=== PATIENT | male | born 1955 | race Caucasian/White ===

== ENCOUNTER 2019-11-18 10:53 | Emergency (ER) | payer OTHER ==
[2019-11-18 11:17] VITALS: BP 155/86
[2019-11-18] MEDS ORDERED: ONDANSETRON 4 MG TAB.RAPDIS PO ONE (11:29)
[2019-11-18] MEDS ORDERED: PENICILLIN V POTASSIUM 500 MG TABLET PO ONE (11:29)
[2019-11-18] MEDS ORDERED: HYDROCODONE/ACETAMINOPHEN 5-325 MG TABLET PO ONE (11:30)
[2019-11-18] MEDS ORDERED: LIDOCAINE 2% VISCOUS SOLN 15 ML UDCUP PO ONE (11:30)
--- NOTE | 2019-11-18 11:33 | ER Document Report ---
HPI - HPI Time Seen by Provider: 11/18/19 11:24 Pain Level: 5 Notes: 63-year-old male patient presenting to the emergency department chief complaint of dental pain. Patient reports pain at tooth #4, 5 and 6. Patient reports pain started 2 days ago. He states it is a throbbing pain. He states the pain is so severe he has been vomiting through the night. He denies any fever but reports some chills. Denies any other symptoms. Denies body aches. - REPRODUCTIVE Reproductive: DENIES: : Past Medical History - General Information source: Patient - Social History Smoking Status: Current Every Day Smoker Chew tobacco use (# tins/day): No Frequency of alcohol use: Social Drug Abuse: None Family History: Reviewed & Not Pertinent Patient has suicidal ideation: No Patient has homicidal ideation: No - Medical History Medical History: Negative Surgical Hx: Negative - Immunizations Immunizations up to date: Yes Vertical Provider Document - CONSTITUTIONAL Notes: PHYSICAL EXAMINATION: GENERAL: Well-appearing, well-nourished and in no acute distress. HEAD: Atraumatic, normocephalic. EYES: Pupils equal round extraocular movements intact, conjunctiva are normal. ENT: Nares patent, poor dentition noted throughout, erythema surrounding tooth #3, 4, 5 and 6. No obvious drainable abscess. Mild facial swelling noted. No trismus. Patient swallowing without difficulty. NECK: Normal range of motion LUNGS: No respiratory distress Musculoskeletal: Normal range of motion NEUROLOGICAL: Normal speech, normal gait. PSYCH: Normal mood, normal affect. SKIN: Warm, Dry, normal turgor, no rashes or lesions noted. - INFECTION CONTROL TRAVEL OUTSIDE OF THE [place] IN LAST 30 DAYS: No Course - Vital Signs Vital signs: Temp Pulse Resp BP Pulse Ox 98.1 F 84 18 155/86 H 98 11/18/19 11:15 11/18/19 11:15 11/18/19 11:15 11/18/19 11:15 11/18/19 11:15 Discharge - Discharge Clinical Impression: Pain, dental Condition: Stable Disposition: HOME, SELF-CARE Additional Instructions: You have been seen for dental pain. It is very important that you follow-up with a dentist for definitive care. Please return if you develop fever greater than 101, swelling in your face, vomiting, difficulty breathing or swallowing, or any other symptoms that are concerning to you. For pain you should take ibuprofen 800 mg every 8 hours as needed. Prescriptions: Penicillin V Potassium [Penicillin Vk 500 mg Tablet] 500 mg PO BID #20 tablet Ondansetron [Zofran Odt 4 mg Tablet] 1 - 2 tab PO Q4H PRN #15 tab.rapdis PRN Reason: For Nausea/Vomiting Referrals: DALI STONER MD [Primary Care Provider] - Follow up as needed
== END 2019-11-18 11:45 | disposition home or self-care (01) ==
LOC: ER 10:53
DX: K08.9 Disorder of teeth and supporting structures, unspecified (principal); R11.10 Vomiting, unspecified; F17.200 Nicotine dependence, unspecified, uncomplicated
CPT/HCPCS: 99282; S0119; J3490

== ENCOUNTER 2019-12-03 06:28 | Emergency (ER) | payer OTHER ==
--- NOTE | 2019-12-03 07:23 | RADIOLOGY REPORT (SQ) ---
Chest 2 view on 12/03/2019 at 7:20 AM CLINICAL INDICATION: Chest pain COMPARISON: None FINDINGS: The lungs are clear. Cardiac, hilar and mediastinal contours are within normal limits. Pulmonary vascularity is within normal limits. No bony abnormality is noted. IMPRESSION: No active disease.
[2019-12-03 07:33] LABS: ABSOLUTE BASOPHILS # (AUTO) 0.1 10^3/uL (0.0-0.2); ABSOLUTE EOSINOPHILS # (AUTO) 0.4 10^3/uL (0.0-0.6); ABSOLUTE LYMPHOCYTES (AUTO) 1.9 10^3/uL (0.5-4.7); ABSOLUTE MONOCYTES (AUTO) 1.2 10^3/uL (0.1-1.4); BASOPHILS % (AUTO) 0.5 % (0-2); EOSINOPHILS % (AUTO) 2.6 % (0-6); HEMATOCRIT 38.9 % (37.9-51.0); HEMOGLOBIN 13.2 g/dL (13.5-17.0); LYMPHOCYTES % (AUTO) 14.3 % (13-45); MEAN CORPUSCULAR HEMOGLOBIN 30.8 pg (27.0-33.4); MEAN CORPUSCULAR HGB CONC 33.8 g/dL (32.0-36.0); MEAN CORPUSCULAR VOLUME 91 fl (80-97); MONOCYTES % (AUTO) 8.9 % (3-13); PLATELET COUNT 335 10^3/uL (150-450); RED BLOOD COUNT 4.27 10^6/uL (4.35-5.55); RED CELL DISTRIBUTION WIDTH 13.1 % (11.5-14.0); SEGMENTED NEUTROPHILS % (AUTO) 73.7 % (42-78); TOTAL CELLS COUNTED % (AUTO) 100 %; WHITE BLOOD COUNT 13.5 10^3/uL (4.0-10.5)
[2019-12-03] MEDS ORDERED: NITROGLYCERIN 0.4 MG/TAB 25 TAB/BOTTLE ONE (07:55)
[2019-12-03 08:04] LABS: ALBUMIN 4.1 g/dL (3.5-5.0); ALKALINE PHOSPHATASE 119 U/L (38-126); ANION GAP 7 (5-19); ASPARTATE AMINO TRANSFERASE 151 U/L (17-59); BILIRUBIN,DIRECT 0.3 mg/dL (0.0-0.4); BILIRUBIN,TOTAL 0.4 mg/dL (0.2-1.3); BLOOD UREA NITROGEN 19 mg/dL (7-20); CALCIUM 9.2 mg/dL (8.4-10.2); CARBON DIOXIDE 30 mmol/L (22-30); CHLORIDE 101 mmol/L (98-107); CREATINE KINASE 126 U/L (55-170); GLUCOSE 97 mg/dL (75-110); POTASSIUM 4.5 mmol/L (3.6-5.0); TOTAL PROTEIN 7.2 g/dL (6.3-8.2)
[2019-12-03 08:15] LABS: CREATINE KINASE MB 1.49 ng/mL (<4.55)
[2019-12-03 08:16] LABS: TROPONIN I < 0.012 ng/mL
--- NOTE | 2019-12-03 08:27 | ER Document Report ---
ED General - General Chief Complaint: Chest Pain Stated Complaint: CHEST PAIN Primary Care Provider: DALI STONER MD [Primary Care Provider] - Follow up as needed Notes: Patient is a 63-year-old white male with a past medical history of hyperlipidemia who presents to the emergency department with a chief complaint of chest pain that began around 5 AM this morning. He describes it as a sharp stabbing pain in the lower central chest. States it radiates to the bilateral diaphragm areas. States it awoke him this morning around 5 AM. He reports the pain comes in waves. States at this time he is currently asymptomatic. He denies any associated symptoms. Denies any shortness of breath, lower extremity pain or swelling, hemoptysis, history of DVT or PE, recent surgery, recent travel or recent mobilization. Denies any history of cancer or hormone replacement therapies. He is a current everyday smoker. TRAVEL OUTSIDE OF THE [place] IN LAST 30 DAYS: No - Related Data Allergies/Adverse Reactions: No Known Allergies Allergy (Verified 12/03/19 07:47) Home Medications: LIPITOR, ASA 81 MG, MVI Past Medical History - Social History Smoking Status: Current Every Day Smoker Chew tobacco use (# tins/day): No Frequency of alcohol use: None Drug Abuse: None Family History: Reviewed & Not Pertinent Patient has suicidal ideation: No Patient has homicidal ideation: No - Past Medical History Cardiac Medical History: Reports: Hx Hypercholesterolemia Past Surgical History: Reports: Hx Abdominal Surgery - rt inguinal hernia, Hx Cholecystectomy - Immunizations Immunizations up to date: Yes Review of Systems - Review of Systems Cardiovascular: Chest pain -: Yes All other systems reviewed and negative Physical Exam - Vital signs Vitals: Temp Pulse Resp BP Pulse Ox 97.9 F 63 16 146/89 H 100 12/03/19 06:43 12/03/19 06:43 12/03/19 06:43 12/03/19 06:43 12/03/19 06:43 - General General appearance: Appears well, Alert In distress: None - HEENT Mucous membranes: Moist Pharynx: Normal - Respiratory Respiratory status: No respiratory distress Chest status: Nontender Breath sounds: Normal Chest palpation: Normal - Cardiovascular Rhythm: Regular Heart sounds: Normal auscultation Murmur: No - Abdominal Inspection: Normal Distension: No distension Bowel sounds: Normal Tenderness: Nontender Organomegaly: No organomegaly - Extremities General upper extremity: Normal inspection, Nontender, Normal color, Normal ROM, Normal temperature General lower extremity: Normal inspection, Nontender, Normal color, Normal ROM, Normal temperature, Normal weight bearing. No: Pranav's sign - Neurological Neuro grossly intact: Yes Cognition: Normal Orientation: AAOx4 [place] Coma Scale Eye Opening: Spontaneous [place] Coma Scale Verbal: Oriented [place] Coma Scale Motor: Obeys Commands Lauri Coma Scale Total: 15 Speech: Normal - Psychological Associated symptoms: Normal affect, Normal mood - Skin Skin Temperature: Warm Skin Moisture: Dry Skin Color: Normal Course - Re-evaluation Re-evalutation: 12/03/19 08:48 Upon my evaluation, offered the patient morphine for pain. He declined stating he was not in pain at this time and did not require any pain medications. 12/03/19 09:25 Initial heart score 2, low risk. 12/03/19 10:07 Reevaluation at this time, patient is resting comfortably in the room. Sleeping but easily arousable. He denies any further episodes of pain during his stay here. His EKGs are unremarkable for any ST elevation or depression. 2 troponins negative. Heart score of 2, low risk. He will be referred to cardiology for an outpatient stress within the next 72 hours. Patient given aspirin. He advised he will call the soaker soda worker as discussed. I counseled him at length regarding the importance of outpatient follow-up and advised that he return here or any ER immediately with any new, persistent or worsening symptoms. He verbalized understood and agreed. - Vital Signs Vital signs: Temp Pulse Resp BP Pulse Ox 97.9 F 63 26 H 137/81 H 98 12/03/19 06:43 12/03/19 06:43 12/03/19 09:01 12/03/19 09:01 12/03/19 09:01 - Laboratory Result Diagrams: 12/03/19 07:13 12/03/19 07:13 Laboratory results interpreted by me: 12/03/19 12/03/19 07:13 07:13 WBC 13.5 H RBC 4.27 L Hgb 13.2 L Absolute Neuts (auto) 10.0 H AST 151 H ALT 71 H Discharge - Discharge Clinical Impression: Chest pain Qualifiers: Chest pain type: unspecified Qualified Code(s): R07.9 - Chest pain, unspecified Condition: Stable Disposition: HOME, SELF-CARE Instructions: Angina Episode ([facility]) Additional Instructions: Please call the soaker soda worker today as discussed. Return here or any ER immediately with any new, persistent or worsening symptoms. Referrals: DALI STONER MD [Primary Care Provider] - Follow up as needed JOSE HERRING MD [ACTIVE PROVISIONAL STAFF] - Follow up as needed
[2019-12-03] MEDS ORDERED: ASPIRIN 325 MG TABLET PO ONE (09:50)
[2019-12-03 10:12] VITALS: BP 141/79
--- NOTE | 2019-12-03 12:38 | EKG REPORT ---
SEVERITY:- ABNORMAL ECG - SINUS RHYTHM INCOMPLETE RBBB AND LAFB : Confirmed by: Ori Carroll MD 03-Dec-2019 12:37:04
--- NOTE | 2019-12-04 11:24 | EKG REPORT ---
SEVERITY:- ABNORMAL ECG - SINUS RHYTHM INCOMPLETE RBBB AND LAFB : Confirmed by: Ori Carroll MD 04-Dec-2019 11:23:14
== END 2019-12-03 10:25 | disposition home or self-care (01) ==
LOC: ER 06:28
DX: R07.9 Chest pain, unspecified (principal); F17.200 Nicotine dependence, unspecified, uncomplicated
CPT/HCPCS: 36415; 71046; 80053; 82550; 82553; 84484; 85025; 93005; 93010; 99285